=== PATIENT | male | born 1945 | race Caucasian/White ===

== ENCOUNTER 2016-12-19 13:39 | Outpatient (CLI) | payer MEDICARE | END 2016-12-19 13:40 | disposition home or self-care (01) | DX: I25.10 Atherosclerotic heart disease of native coronary artery without angina pectoris (principal) ==

== ENCOUNTER 2017-06-12 14:25 | Outpatient (CLI) | payer MEDICARE ==
[2017-06-12 19:32] LABS: BASOPHILS # (AUTO) 0.1 10^3/uL (0.0-0.1); BASOPHILS % (AUTO) 0.9 %; EOSINOPHILS # (AUTO) 0.1 10^3/uL (0.0-0.7); EOSINOPHILS % (AUTO) 1.1 %; HCT - HEMATOCRIT 44.8 % (42.0-52.0); HGB - HEMOGLOBIN 14.7 g/dL (14.0-18.0); LYMPHOCYTES # (AUTO) 2.2 10^3/uL (1.5-3.5); LYMPHOCYTES % (AUTO) 27.4 %; MEAN CORPUSCULAR HEMOGLOBIN 31.6 pg (27.0-31.0); MEAN CORPUSCULAR HGB CONC 32.7 g/dL (32.0-36.0); MEAN CORPUSCULAR VOLUME 96.6 fL (80.0-94.0); MEAN PLATELET VOLUME 9.5 fL (7.4-11.4); MONOCYTES # (AUTO) 0.7 10^3/uL (0.0-1.0); MONOCYTES % (AUTO) 8.6 %; NEUTROPHILS # (AUTO) 5.1 10^3/uL (1.5-6.6); RED BLOOD COUNT 4.64 10^6/uL (4.70-6.10); RED CELL DISTRIBUTION WIDTH 14.1 % (12.0-15.0); UNCORRECTED WHITE BLOOD COUNT 8.2 x10^3/uL; WHITE BLOOD COUNT 8.2 x10^3/uL (4.8-10.8)
[2017-06-12 19:44] LABS: ALBUMIN/GLOBULIN RATIO 1.2 (1.0-2.2); BUN - BLOOD UREA NITROGEN 20 mg/dL (6-20); CALCIUM 8.9 mg/dL (8.5-10.3); CARBON DIOXIDE - CO2 26 mmol/L (21-32); CHLORIDE 104 mmol/L (101-111); CHOLESTEROL 151 mg/dL; CREATININE 0.9 mg/dL (0.6-1.2); GFR - MDRD 84 (>89); GLUCOSE 91 mg/dL (70-100); HDL CHOLESTEROL 50 mg/dL; LDL/HDL RATIO 1.8 (<3.6); POTASSIUM 4.4 mmol/L (3.5-5.0); SODIUM 136 mmol/L (135-145); TOTAL PROTEIN 7.3 g/dL (6.7-8.2); TRIGLYCERIDES 60 mg/dL; VLDL CHOLESTEROL 12 mg/dL
== END 2017-06-12 14:26 | disposition home or self-care (01) ==
LOC: LAB.WCP 14:25
PROVIDERS: ATTEND Family Medicine
DX: I25.10 Atherosclerotic heart disease of native coronary artery without angina pectoris (principal); Z12.5 Encounter for screening for malignant neoplasm of prostate
CPT/HCPCS: 36415; 80053; 80061; 85025; G0103; 84153

== ENCOUNTER 2018-04-04 07:58 | Outpatient (CLI) | payer MEDICARE ==
[2018-04-04] MEDS ORDERED: GADOBUTROL 10 MMOL/10 ML VIAL ONE (09:20)
[2018-04-04 10:06] LABS: CALCIUM 8.6 mg/dL (8.5-10.3); CREATININE 1.1 mg/dL (0.6-1.2)
[2018-04-04] MEDS ORDERED: GADOBUTROL 10 MMOL/10 ML VIAL IVP ONE (11:32)
--- NOTE | 2018-04-04 22:32 | Ultrasound Report ---
Procedure Date: 04/04/2018 Accession Number: [id number] / [id number] Procedure: US - Carotid Doppler Complete CPT Code: FULL RESULT: EXAM: BILATERAL CAROTID AND VERTEBRAL ARTERY DUPLEX DOPPLER ULTRASOUND. EXAM DATE: 04/04/2018 09:25 AM. CLINICAL HISTORY: Numbness, hand. COMPARISON: None. TECHNIQUE: Grayscale imaging, color Doppler, and duplex spectral Doppler were used to evaluate the carotid and vertebral arteries bilaterally. Static images were obtained. 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 Moderate predominantly calcified atheromatous plaques at the left carotid bulb extending into the internal and external carotid artery. No hemodynamically significant stenosis in the left carotid system. Normal antegrade flow is present in bilateral vertebral arteries. VELOCITIES (cm/sec): VELOCITIES: Right: CCA Prox: PSV 51 cm/sec. CCA Dist: PSV 64 cm/sec, EDV 7 cm/sec. ICA Prox: Occluded. ICA Mid: Occluded. ICA Dist: Occluded. ECA: PSV 101 cm/sec. Bulb: PSV 98 cm/sec, EDV 10 cm/sec, ICA/CCA ratio 1.5%. RVA flow direction: 84 antegrade. Left: CCA Prox: PSV 97 cm/sec. CCA Dist: PSV 93 cm/sec, EDV 23 cm/sec. ICA Prox: PSV 96 cm/sec, EDV 31 cm/sec, ICA/CCA ratio 1.0. ICA Mid: PSV 68 cm/sec, EDV 25 cm/sec, ICA/CCA ratio 0.73. ICA Dist: PSV 73 cm/sec, EDV 22 cm/sec, ICA/CCA ratio 0.78. ECA: PSV 92 cm/sec. Bulb: PSV 103 cm/sec, EDV 32 cm/sec, ICA/CCA ratio 1.1. Subclavian Artery: PSV 43 cm/sec. LVA flow direction: Antegrade. ICA diameter stenosis: Right: Occluded. Left: <50% by velocity and <70% by NASCET criteria. IMPRESSION: 1. No significant left carotid artery plaquing. 2. 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 3. In the left carotid artery there are no elevated carotid artery velocities to suggest hemodynamically significant stenosis. 4. Normal antegrade flow is present in bilateral vertebral arteries. General Recommendations: Stenosis =50% ICA - Follow-up ultrasound 6-12 months Stenosis <50% ICA - High Risk Patient with plaque - Follow-up ultrasound 1-2 years Normal Study but High Risk Patient - Follow-up ultrasound 3-5 years Management recommendations and diagnostic criteria are based on current IAC endorsed standards in Carotid Artery Stenosis: Grayscale and Doppler Ultrasound Diagnosis. Validated velocity measurements with angiographic measurements and velocity criteria are extrapolated from diameter data as defined by the Society of Radiologists in Ultrasound Consensus Conference Radiology 2003; 229;340-346. RADIA The above findings were discussed with Dr Lazcano by Dr. Arminda Sparks at 21:25 hrs on 04/04/18.
--- NOTE | 2018-04-05 00:46 | MRI Report ---
Procedure Date: 04/04/2018 Accession Number: [id number] / [id number] Procedure: MRI - Brain W/WO CPT Code: FULL RESULT: EXAM: MRI BRAIN WITH AND WITHOUT CONTRAST COMPARISON: None. CLINICAL HISTORY: NUMBNESS, HAND. TECHNIQUE: Multiplanar multisequence imaging is performed through the head with and without gadolinium based contrast 7.7 mL Gadavist. FINDINGS: Diffusion-weighted imaging shows no acute infarct. Small focus of elevated signal in the left frontal cortex (505, 19) does not appear restricted, likely reflects T2 shine through. Gradient sequence shows a 3 mm focus of diminished signal in the left cerebellar hemisphere, presumed to reflect a small prior hemorrhage from associated adjacent small infarct. T2 FLAIR imaging shows minimal white matter T2 prolongation. T2 spin-echo imaging shows no posterior fossa masses. 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 No abnormal elevated T1 signal, precontrast, in the brain parenchyma. No developmental anomalies. Postcontrast T1 three-dimensional as well as gradient sequence shows no evident abnormal parenchymal enhancement. No masses. Limited evaluation of the dural venous sinuses and arterial structures is unremarkable. Pituitary fossa, clivus and foramen magnum are unremarkable. Visualized orbits, paranasal sinuses and mastoids are unremarkable. No calvarial signal abnormality. IMPRESSION: No acute infarct, masses, or other discrete acute process identified. No convincing evidence of a demyelinating process. Additional findings as above.
== END 2018-04-04 07:59 | disposition home or self-care (01) ==
LOC: DI 07:58
PROVIDERS: ATTEND Family Medicine
DX: I65.21 Occlusion and stenosis of right carotid artery (principal); R20.2 Paresthesia of skin
CPT/HCPCS: 36415; 70553; 80048; 93880; A9585

== ENCOUNTER 2018-08-31 10:32 | Outpatient (CLI) | payer MEDICARE ==
[2018-08-31 14:39] LABS: BASOPHILS # (AUTO) 0.1 10^3/uL (0.0-0.1); BASOPHILS % (AUTO) 0.8 %; EOSINOPHILS # (AUTO) 0.1 10^3/uL (0.0-0.7); EOSINOPHILS % (AUTO) 1.5 %; HGB - HEMOGLOBIN 14.5 g/dL (14.0-18.0); LYMPHOCYTES # (AUTO) 1.9 10^3/uL (1.5-3.5); LYMPHOCYTES % (AUTO) 23.8 %; MEAN CORPUSCULAR HEMOGLOBIN 32.4 pg (27.0-31.0); MEAN CORPUSCULAR HGB CONC 34.2 g/dL (32.0-36.0); MEAN CORPUSCULAR VOLUME 94.8 fL (80.0-94.0); MEAN PLATELET VOLUME 8.8 fL (7.4-11.4); MONOCYTES # (AUTO) 0.5 10^3/uL (0.0-1.0); MONOCYTES % (AUTO) 6.8 %; NEUTROPHILS # (AUTO) 5.3 10^3/uL (1.5-6.6); NEUTROPHILS % (AUTO) 67.1 %; PLT - PLATELET COUNT 187 10^3/uL (130-450); RED BLOOD COUNT 4.48 10^6/uL (4.70-6.10); RED CELL DISTRIBUTION WIDTH 13.9 % (12.0-15.0); WHITE BLOOD COUNT 7.8 x10^3/uL (4.8-10.8)
[2018-08-31 14:59] LABS: ALBUMIN 3.7 g/dL (3.2-5.5); ALBUMIN/GLOBULIN RATIO 1.1 (1.0-2.2); ALKALINE PHOSPHATASE 100 IU/L (42-121); ALT ALANINE AMINOTRANSFERASE 30 IU/L (10-60); AST ASPARTATE AMINOTRANSFERASE 28 IU/L (10-42); BILIRUBIN,TOTAL 0.7 mg/dL (0.2-1.0); BUN - BLOOD UREA NITROGEN 18 mg/dL (6-20); CALCIUM 8.5 mg/dL (8.5-10.3); CARBON DIOXIDE - CO2 24 mmol/L (21-32); CHLORIDE 107 mmol/L (101-111); CHOL/HDL RATIO 3.3 (<5.0); CHOLESTEROL 139 mg/dL; CREATININE 0.9 mg/dL (0.6-1.2); GFR - MDRD 83 (>89); GLUCOSE 100 mg/dL (70-100); HDL CHOLESTEROL 42 mg/dL; LDL CHOLESTEROL,CALCULATED 79 mg/dL; LDL/HDL RATIO 1.9 (<3.6); SODIUM 134 mmol/L (135-145); TOTAL PROTEIN 7.1 g/dL (6.7-8.2); VLDL CHOLESTEROL 18 mg/dL
== END 2018-08-31 23:59 | disposition home or self-care (01) ==
LOC: LAB.WCP 10:32
PROVIDERS: ATTEND Family Medicine
DX: G45.9 Transient cerebral ischemic attack, unspecified (principal); I25.10 Atherosclerotic heart disease of native coronary artery without angina pectoris
CPT/HCPCS: 36415; 80053; 80061; 83721; 84443; 85025

== ENCOUNTER 2020-04-12 10:11 | Outpatient (CLI) | payer MEDICARE ==
--- NOTE | 2020-04-12 11:44 | XRAY Report ---
PROCEDURE: Abdomen 1 View X-Ray INDICATIONS: KIDNEY STONES TECHNIQUE: 1 view of the abdomen were acquired. COMPARISON: None. FINDINGS: Surgical changes and devices: None. Bowel: No pneumoperitoneum. The bowel gas pattern is normal. Soft tissues: No masses; visualized solid organ contours appear normal in size. No suspicious abdom inal calcifications. Note is made of a rounded calcification over the lower third collecting system area of the right kidney. Bones: No suspicious bony abnormalities. IMPRESSION: Isolated finding of a 3 mm rounded presumed collecting system calculus superimposed on t he expected area of the lower third of the right kidney. No ureteral or bladder region calculus is fo und. Reviewed by: Felix Avila MD on 04/12/2020 11:43 AM PDT Approved by: Felix Avila MD on 04/12/2020 11:43 AM PDT Station ID: [id number]
== END 2020-04-12 10:12 | disposition home or self-care (01) ==
LOC: DI 10:11
PROVIDERS: ATTEND Urology
DX: N20.0 Calculus of kidney (principal)
CPT/HCPCS: 74018

== ENCOUNTER 2020-07-05 11:49 | Outpatient (CLI) | payer MEDICARE ==
--- NOTE | 2020-07-05 15:46 | XRAY Report ---
PROCEDURE: Lumbar Spine Complete INDICATIONS: LOW BACK PAIN TECHNIQUE: 5 views of the lumbar spine were acquired. COMPARISON: None. FINDINGS: Bones: 5 [id number] vertebrae are present. There is trace retrolithesis of L1 on L2, L2 on L3, L5-S1.Wedge deformity is present, appearing chronic. Multilevel anterior osteophytes are present. Moderate disc space narrowing is present at T12-L1, L1-2, L5-S1. Severe foraminal narrowing is note d at L5-S1 as well as L1-L2. No suspicious bony lesions. Soft tissues: Overlying bowel gas pattern is normal. No suspicious soft tissue calcifications. IMPRESSION: Multilevel degenerative changes are present most severe at L5-S1. Reviewed by: Dianna Daniels MD on 07/05/2020 3:44 PM PDT Approved by: Dianna Daniels MD on 07/05/2020 3:44 PM PDT Station ID: [id number]
== END 2020-07-05 11:50 | disposition home or self-care (01) ==
LOC: DI 11:49
PROVIDERS: ATTEND Family Medicine
DX: M47.817 Spondylosis without myelopathy or radiculopathy, lumbosacral region (principal)
CPT/HCPCS: 72110

== ENCOUNTER 2020-11-29 08:00 | Outpatient (CLI) | payer MEDICARE ==
[2020-11-29 18:13] LABS: BASOPHILS # (AUTO) 0.1 10^3/uL (0.0-0.1); EOSINOPHILS # (AUTO) 0.2 10^3/uL (0.0-0.7); EOSINOPHILS % (AUTO) 2.6 %; HCT - HEMATOCRIT 43.3 % (42.0-52.0); HGB - HEMOGLOBIN 13.9 g/dL (14.0-18.0); LYMPHOCYTES % (AUTO) 28.4 %; MEAN CORPUSCULAR HEMOGLOBIN 31.7 pg (27.0-31.0); MEAN CORPUSCULAR HGB CONC 32.1 g/dL (32.0-36.0); MEAN CORPUSCULAR VOLUME 98.9 fL (80.0-94.0); MONOCYTES # (AUTO) 0.7 10^3/uL (0.0-1.0); MONOCYTES % (AUTO) 10.6 %; NEUTROPHILS # (AUTO) 3.9 10^3/uL (1.5-6.6); NEUTROPHILS % (AUTO) 57.1 %; PLT - PLATELET COUNT 199 10^3/uL (130-450); RED BLOOD COUNT 4.38 10^6/uL (4.70-6.10); RED CELL DISTRIBUTION WIDTH 13.6 % (12.0-15.0); WHITE BLOOD COUNT 6.9 x10^3/uL (4.8-10.8)
[2020-11-29 18:34] LABS: ALBUMIN 3.7 g/dL (3.2-5.5); ALBUMIN/GLOBULIN RATIO 1.2 (1.0-2.2); ALKALINE PHOSPHATASE 92 IU/L (42-121); ALT ALANINE AMINOTRANSFERASE 32 IU/L (10-60); AST ASPARTATE AMINOTRANSFERASE 36 IU/L (10-42); BILIRUBIN,TOTAL 1.3 mg/dL (0.2-1.0); BUN - BLOOD UREA NITROGEN 17 mg/dL (6-20); CARBON DIOXIDE - CO2 25 mmol/L (21-32); CHLORIDE 103 mmol/L (101-111); CHOLESTEROL 129 mg/dL; CREATININE 0.9 mg/dL (0.6-1.2); GFR - MDRD 83 (>89); GLUCOSE 109 mg/dL (70-100); HDL CHOLESTEROL 43 mg/dL; LDL CHOLESTEROL,CALCULATED 66 mg/dL; LDL/HDL RATIO 1.5 (<3.6); POTASSIUM 4.1 mmol/L (3.5-5.0); SODIUM 135 mmol/L (135-145); TOTAL PROTEIN 6.7 g/dL (6.7-8.2); TRIGLYCERIDES 98 mg/dL; VLDL CHOLESTEROL 20 mg/dL
== END 2020-11-29 23:59 | disposition home or self-care (01) ==
LOC: LAB.WCP 08:00
PROVIDERS: ATTEND Family Medicine
DX: I25.10 Atherosclerotic heart disease of native coronary artery without angina pectoris (principal)
CPT/HCPCS: 36415; 80053; 80061; 83721; 85025

== ENCOUNTER 2020-12-06 15:25 | Outpatient (CLI) | payer MEDICARE ==
--- NOTE | 2020-12-06 16:58 | Ultrasound Report ---
PROCEDURE: Carotid Doppler Complete INDICATIONS: CAROTID ARTERIAL DISEASE TECHNIQUE: Color and pulse Doppler interrogation was performed of both carotid systems, with image documentation and velocity measurements. COMPARISON: None. FINDINGS: Right side: Common carotid artery peak systolic velocity: 50 cm/sec. Internal carotid artery peak systolic velocity: Occluded, unchanged. Internal carotid artery end diastolic velocity: Occluded, unchanged. External carotid artery peak systolic velocity: 97 cm/sec. ICA/CCA peak systolic ratio: Not applicable . Rascon scale imaging description: Occluded Percent internal carotid artery stenosis: Occluded . Vertebral artery: Flow direction is antegrade. Left side: Common carotid artery peak systolic velocity: 93 cm/sec. Internal carotid artery peak systolic velocity: 82 cm/sec. Internal carotid artery end diastolic velocity: 24 cm/sec. External carotid artery peak systolic velocity: 91 cm/sec. ICA/CCA peak systolic ratio: 0.9 . Rascon scale imaging description: Moderate plaque at the bifurcation. Percent internal carotid artery stenosis: Less than 50% . Vertebral artery: Flow direction is antegrade. IMPRESSION: 1. Unchanged appearance of occluded right internal carotid artery. 2. Unchanged appearance of less than 50% stenosis within the left internal carotid artery. The estimate of stenosis included in the report of the imaging study was calculated using the NASCET method Reviewed by: Dianna Daniels MD on 12/06/2020 4:57 PM PST Approved by: Dianna Daniels MD on 12/06/2020 4:57 PM PST Station ID: [id number]
== END 2020-12-06 15:26 | disposition home or self-care (01) ==
LOC: DI 15:25
PROVIDERS: ATTEND Family Medicine
DX: I77.9 Disorder of arteries and arterioles, unspecified (principal); I65.21 Occlusion and stenosis of right carotid artery
CPT/HCPCS: 93880

== ENCOUNTER 2021-05-10 11:27 | Outpatient (CLI) | payer MEDICARE ==
--- NOTE | 2021-05-10 14:57 | XRAY Report ---
PROCEDURE: Abdomen 1 View X-Ray INDICATIONS: NEPHROLITHIASIS TECHNIQUE: 1 view of the abdomen were acquired. COMPARISON: None FINDINGS: Surgical changes and devices: None. Bowel: No pneumoperitoneum. The bowel gas pattern is normal. Soft tissues: No masses; visualized solid organ contours appear normal in size. 5 mm calculus projec ts over the lower pole the right kidney.. Bones: No suspicious bony abnormalities. IMPRESSION: Probable 5 mm right renal calculus. Nonobstructive bowel gas pattern Reviewed by: Deric Lee MD on 05/10/2021 1:56 PM AKDT Approved by: Deric Lee MD on 05/10/2021 1:56 PM AKDT Station ID: [id number]
== END 2021-05-10 11:28 | disposition home or self-care (01) ==
LOC: DI 11:27
PROVIDERS: ATTEND Urology
DX: N20.0 Calculus of kidney (principal)

== ENCOUNTER 2023-12-22 17:41 | Emergency (ER) | payer MEDICARE, OTHER ==
--- NOTE | 2023-12-22 19:50 | XRAY Report ---
PROCEDURE: Hip w/Pelvis 2-3V LT INDICATIONS: glf. left hip pain TECHNIQUE: 2 views of the hip were acquired. COMPARISON: None. FINDINGS: Bones: No fractures or dislocations. No suspicious bony lesions. Degenerative changes of the bila teral hip. Bony pelvis appears intact. Soft tissues: No suspicious soft tissue calcifications or masses. IMPRESSION: Left hip without acute fracture or dislocation. Degenerative changes of the bilateral hip. If there is persistent clinical concern for a radiographically occult fracture, consider further eval uation with CT or MRI Reviewed by: Jeremiah Lanza MD on 12/22/2023 7:48 PM PDT Approved by: Jeremiah Lanza MD on 12/22/2023 7:48 PM PDT Station ID: [id number]
--- NOTE | 2023-12-22 20:41 | ED Physician Documentation ---
History of Present Illness - Stated complaint Stated Complaint: L HIP PX - Chief complaint Chief Complaint: Ext Problem - Additonal information Additional information: 78-year-old male presents emergency department for left hip pain. He has had no recent trauma or falls he said this has been ongoing now for about a month and a half he saw his primary care provider who told him to go to physical therapy he has completed physical therapy with little to no relief he has had no imaging done. He is that he called the triage nurse to make an appoint with his primary care provider who told him to come to the emergency department for further evaluation of his chronic left hip pain. No fevers or chills no new weakness PD PAST MEDICAL HISTORY - Past Medical History Past Medical History: Yes Cardiovascular: Hypertension - Past Surgical History Past Surgical History: Yes - Present Medications Home Medications: Ambulatory Orders Medication Instructions Recorded Confirmed Alfuzosin HCl [Alfuzosin HCl ER] 10 mg PO HS 12/22/23 12/22/23 Aspirin EC [Ecotrin] 81 mg PO DAILY 12/22/23 12/22/23 Atorvastatin Calcium [Lipitor] 80 mg PO HS 12/22/23 12/22/23 Cholecalciferol [Vitamin D3] 25 mcg PO DAILY 12/22/23 12/22/23 Clopidogrel [Plavix] 75 mg PO DAILY 12/22/23 12/22/23 Isosorbide Mononitrate [Isosorbide 60 mg PO DAILY 12/22/23 12/22/23 Mononitrate ER] Nitroglycerin [Nitrostat] 0.4 mg SL [id number] 12/22/23 12/22/23 amLODIPine [Norvasc] 5 mg PO DAILY 12/22/23 12/22/23 - Allergies Allergies/Adverse Reactions: Allergies Allergy/AdvReac Type Severity Reaction Status Date / Time No Known Drug Allergies Allergy Verified 12/22/23 17:48 - Social History Does the pt smoke?: No Smoking Status: Never smoker Does the pt drink ETOH?: No Does the pt have substance abuse?: No - Immunizations Immunizations are current?: Yes PD ED PE NORMAL - Vitals Vital signs reviewed: Yes - General General: Alert and oriented X 3, No acute distress, Well developed/nourished - HEENT HEENT: Atraumatic - Back Back: No CVA TTP, No spinal TTP - Extremities Extremities: Other (Left hip: Full range of motion with the exception of flexion as well as valgus and varus. Tenderness with valgus and varus range of motion. No crepitus no popping, no tenderness with palpation to the left hip.) - Psych Psych: Normal mood, Normal affect Results - Vitals Vitals: Vital Signs - 24 hr 12/22/23 12/22/23 17:48 21:32 Temperature 36.8 C 36.7 C Heart Rate 70 64 Respiratory 18 16 Rate Blood Pressure 139/60 H 142/70 H O2 Saturation 100 97 Oxygen O2 Source Room air - Rads (name of study) Left hip x-rays Relevant Findings:: Final report received, EMP independent interpretation of test, Other (No acute fracture or dislocation of the left hip, degenerative changes of bilateral hips) PD Medical Decision Making - ED course ED course: 78-year-old male here for his chronic left hip pain. X-rays were complete there is no acute abnormalities or findings except for what appears to be age-related arthritis. Patient was given a Toradol injection to help with pain and swelling of the left hip he is told to follow-up with primary care provider for an orthopedic surgeon referral for possible other interventions. He was given strict ER return precautions all questions answered he is ambulatory without any weakness on that left hip no further emergent workup indicated at this time and safe for discharge. Departure - Departure Disposition: 01 Home, Self Care Clinical Impression: Left hip pain Instructions: Hip Adduction Strength, Hip Abduction Strength, Hip Rotation, Iliotibial Band Stretch Comments: Thank you for trusting us with your care. We have completed x-rays of your left hip and we are not seeing anything abnormal at this point in time. Given that you have completed physical therapy and have done multiple exercises at home for this ongoing left hip pain I believe that the next step would be to follow-up with your primary care provider for possible orthopedic surgeon referral for more advanced imaging. The x-ray does show that you have degenerative changes of both of your hips so this could be arthritis and sometimes when arthritis gets severe enough you may need a hip replacement. It is too early to tell these things but as we discussed I do believe that you would benefit from more advanced imaging as well as follow-up with orthopedic surgeon or your primary care provider. I have attached the orthopedic surgeons contact information for you to contact their office to see if you need a referral to get in with them b ut I also understand you will need to have this [facility] with [facility] to make sure that your insurance covers it. We have given you a Toradol shot here in the emergency department help with inflammation and pain that you are experiencing in your left hip. I hope this alleviates some of your pain you are able to get a better nights rest. Forms: PCP List Discharge Date/Time: 12/22/23 21:32
[2023-12-22] MEDS: KETOROLAC 30 MG/ML VIAL IM STA (21:18)
[2023-12-22 21:35] VITALS: BP 142/70; O2SAT 97
== END 2023-12-22 21:32 | disposition home or self-care (01) ==
LOC: ED 17:41
DX: M25.552 Pain in left hip (principal); I10 Essential (primary) hypertension; Z79.82 Long term (current) use of aspirin; Z79.899 Other long term (current) drug therapy; Z79.02 Long term (current) use of antithrombotics/antiplatelets
CPT/HCPCS: 96372; 99283; 99284